=== PATIENT | female | born 1975 | race Caucasian/White ===

== ENCOUNTER 2017-10-03 08:07 | Inpatient (IN) ==
[2017-10-03] MEDS ORDERED: Albuterol 2.5 MG/3 ML NEBULIZER IH ONE (08:20)
[2017-10-03] MEDS ORDERED: CeFAZolin Syr 2,000MG/20 ML 2,000 MG/20 ML SYRINGE IVPB ONE (08:20)
[2017-10-03] MEDS ORDERED: Ringers Solution, Lactated 1,000 ML IVC SCH ×2 (08:30→15:03)
[2017-10-03] MEDS ORDERED: *HR* Succinylcholine 200 MG/10 ML VIAL IVP ONE (08:41)
[2017-10-03] MEDS ORDERED: Ondansetron 4 MG/2 ML VIAL ONE (08:41)
[2017-10-03] MEDS ORDERED: Neostigmine Methylsulfate 3 MG/3 ML SYRINGE ONE (08:41)
[2017-10-03] MEDS ORDERED: Lidocaine -MPF 2% 2 ML VIAL ONE (08:41)
[2017-10-03] MEDS ORDERED: *HR* Rocuronium Bromide 50 MG/5 ML VIAL ONE ×2 (08:41→12:04)
[2017-10-03] MEDS ORDERED: Lidocaine -MPF 4% 5 ML AMPUL ONE (08:41)
[2017-10-03] MEDS ORDERED: Dexamethasone 4 MG/ML VIAL ONE (08:41)
[2017-10-03] MEDS ORDERED: *HR* Propofol 200 MG/20 ML VIAL IVP ONE (08:42)
[2017-10-03] MEDS ORDERED: *HR* FentaNYL (PF) 100 MCG/2 ML VIAL ONE ×2 (08:42→12:54)
[2017-10-03] MEDS ORDERED: Ketorolac 30 MG/ML VIAL ONE (08:42)
[2017-10-03] MEDS ORDERED: *HR* Midazolam HCl 2 MG/2 ML VIAL ONE (08:42)
--- NOTE | 2017-10-03 09:55 | History & Physical Report ---
Date of Encounter: 10/03/17 Time of Encounter: 09:54 24 Hour HP Update - Instructions Instructions: If the History and Physical is less than 30 days old and was completed prior to A.M. admission and or procedure and has NOT been updated on calendar day of procedure please complete this update prior to performing procedure. - Update Patient reports changes in Medical Condition: No Changes in examination, assessment, or condition: No Changes in Medication: No Preop tests/diagnostics Reviewed: Yes Surgery Remains Indicated: Yes Consent for Planned Operative Procedure(s) Verified: Yes - Pre-Operative Checklist Preoperative Checklist Indicated: Yes Prophylactic Antibiotic Ordered: Yes Home Medications Include Beta Marky: No Beta Marky Taken Today (Day of Surgery): No Beta Marky Taken Yesterday (Day Prior to Surgery): No Is VTE Prophylaxis Indicated?: Yes
--- NOTE | 2017-10-03 10:06 | Anesthesia Evaluation PreOp ---
Date of Encounter: 10/03/17 Time of Encounter: 10:03 - Past History Planned Operation: AGATA Cardiac History: HTN, Hyperlipidemia Pulmonary History: Smoker, Other [employer] History: Denies Any Significant HX Other Medical History: Thyroid, Other (Uterine fibroids, Menorrhagia, Anemia, Morbid obesity BMI 41) Anesthesia History: No Prior Anesthetic Complications, Past Anesthesia (BTL, Appy) Alcohol Use: none Drug use: none Medications and Allergies Atorvastatin [Lipitor] 40 mg PO DAILY 10/03/17 [History] Levothyroxine Sodium 50 mcg PO DAILY 10/03/17 [History] Lisinopril/Hydrochlorothiazide [Zestoretic 20-25 mg Tablet] 1 tab PO DAILY 10/03 [History] 3 Allergy/AdvReac Type Severity Reaction Status Date / Time No Known Allergies Allergy Verified 10/03/17 08:30 - Meds/Allergy Pre-op Review Medications Reviewed: Yes Allergies Reviewed: Yes Anesthesia Results - Labs Laboratory Tests 09/26/17 09/26/17 15:29 15:29 Hgb 10.6 L Hct 33.5 L Plt Count 318 Sodium 136 Potassium 4.3 BUN 11 Creatinine 0.81 Est GFR (Non-Af Amer) > 60 Anesthesia Exam O2 Sat Height 1.68 m Height 1.68 m Height 1.68 m Weight 113.852 kg Weight 113.852 kg Weight 113.852 kg O2 Sat by Pulse Oximetry 98 O2 Sat by Pulse Oximetry 98 Vital Signs Temp Pulse Resp BP Pulse Ox 98.0 F 68 18 115/71 98 10/03/17 08:20 10/03/17 08:20 10/03/17 08:20 10/03/17 08:20 10/03/17 08:20 - HEENT Pupil (Motor): Pupils equal Mallampati: I Teeth: Edentulous Denture Type: Upper: Complete Oral Opening: Greater than 3 - [employer] LOC: Oriented - Cardiac Rhythm: Regular - Pulmonary Breath Sounds: bilateral Clear Anesthesia Assess/Plan ASA Score: 3 Modified Grafton Scale for Level of Consciousness: Cooperative, oriented, and tranquil Anesthetic Plan: General, Regional (Possible Daniel TAP block) Autologous Blood: Yes (If needed, T&S ordered) Monitoring Plan: Standard Monitors Recovery Plan: PACU
[2017-10-03] MEDS ORDERED: EPHEDrine 50 MG/ML VIAL ONE (11:03)
[2017-10-03] MEDS ORDERED: *HR* Morphine 10 MG/ML VIAL ONE (12:35)
[2017-10-03] MEDS ORDERED: *HR* HYDROmorphone (PF) 1 MG/ML SYRINGE IVP PRN (13:17)
[2017-10-03] MEDS ORDERED: *HR* Promethazine 25 MG/ML VIAL IVP PRN (13:17)
--- NOTE | 2017-10-03 13:40 | Anesthesia Evaluation Post Op ---
Date of Encounter: 10/03/17 Time of Encounter: 13:40 - Vital Signs Vital Signs: vss - Lungs Lungs: Clear Ascult./Percussion - Airway Airway: Non-obstructed - Cardiovascular Regular Rate, Baseline Rhythm - Mental Status Mental Status: Alert & Oriented, Answers Appropriately - Pain Pain Scale: 0 Pain Scale used: Numeric (1 - 10) - Nausea Vomiting Nausea Vomiting: Not Present - Hydration Hydration: Tolerates oral liquids, Ice chips, Gore catheter - Discharge PostOp Status: Transfer Patient to floor
--- NOTE | 2017-10-03 14:30 | OB/GYN Procedure Note ---
OB-HEALTH SERVICES INFORMATION SPECIALIST: Procedure - Diagnosis Date of procedure: 10/03/17 Pre-op diagnosis: pelvic pain, fibroid uterus Post-op diagnosis: same - Procedure Procedure: AGATA, BS Surgeon: Shahla Moody Was there an chiropractic assistant present: Yes Electrolysist: Kvng Bellamy Anesthesia Type: General Estimated blood loss (cc): 50 Fluids: crystalloid Procedure Complications: none Specimens collected: b/l tubes, uterus and cervix Disposition: same day Findings: fibroid uterus, normal looking ovaries and tubes Narrative: The patient was prepped and draped in the usual sterile fashion. An incision was made into the abdomen down through the subcutaneous tissue, muscular fascia and peritoneum. Once inside the abdominal cavity, a retractor(Alicia Reyes) was placed to expose the pelvic cavity with 3 lap sponges. The uterus was then identified and grasped on the fundus with a double-toothed tenaculum with upward traction. The round ligaments on either side were identified and individually dissected and ligated with the Ligasure device. This allowed us to then create a bladder flap by both blunt and sharp dissection. The fallopian tube and ovarian ligament were isolated through the broad ligament from the uterine body and ligated with the Ligasure divided as well. We then skeletonized the uterine vessels on either side and carefully dissected the bladder flap anteriorly. Posteriorly, the peritoneum was dissected down toward the uterosacral ligaments. Priscila clamps were then placed at each isthmic portion of the cervical body junction where the uterine arteries adjoined the uterus. These were clamped, ligated and divided using #0 Vicryl suture. The remainder of the uterus was then removed by the [id number] technique using #0 Vicryl on all major pedicles. With removal of the uterus, the vaginal cuff was closed in the usual manner. Hemostasis was then inspected and secured throughout the entire area. The ovaries were left in situ. The lap sponges were then removed and the self-retaining retractor was removed. The patient tolerated the operation nicely. The sponge count was correct times 2 at this time. The Gore catheter was inspected and clear urine was noted. Having removed all instruments and packs, we then began closure of the abdomen. The fascia was closed with #0 PDS in a running continuous manner and the subcutaneous tissue was also closed with #3-0 Vicryl after irrigation. The skin was closed with #4-0 vicryl. The patient tolerated the operation nicely and was then taken to the Recovery Room in good condition.
[2017-10-03] MEDS ORDERED: Naloxone 0.4 MG/ML INJ IVP PRN (15:03)
[2017-10-03] MEDS ORDERED: Ondansetron 4 MG/2 ML VIAL IVP PRN (15:03)
[2017-10-03] MEDS: *HR* OxyCODONE/APAP 5/325 TABLET PO PRN ×2 (15:29→22:26)
[2017-10-04 04:36] LABS: Basophils % 0.1 %; Eosinophils % 0.1 %; Hematocrit 35.4 % (35.3-44.9); Hemoglobin 11.6 g/dL (11.5-15.4); Immature Granulocytes % 0.4 % (0-4); Lymphocytes # 2.1 K/mcL (0.6-4.6); Lymphocytes % 12.4 %; Mean Corpuscular HGB Conc 32.8 g/dL (31.6-35.5); Mean Corpuscular Hemoglobin 28.6 pg (28.0-33.3); Mean Corpuscular Volume 87.2 fL (83.0-100.0); Mean Platelet Volume 10.3 fL (9.4-12.4); Monocytes # 1.2 K/mcL (0.0-1.3); Monocytes % 6.8 %; Neutrophils # 13.6 K/mcL (1.6-8.9); Platelet Count 349 K/mcL (140-400); Red Blood Count 4.06 M/mcL (3.82-4.97); Red Cell Distribution Width 14.2 % (11.5-14.5); Segmented Neutrophils % 80.2 %
[2017-10-04] MEDS: *HR* OxyCODONE/APAP 5/325 TABLET PO PRN (05:25)
[2017-10-04 08:16] VITALS: BP 99/64
--- NOTE | 2017-10-04 08:22 | Discharge Summary ---
Date of Encounter: 10/04/17 Time of Encounter: 08:22 - Discharge Diagnosis (1) Status post hysterectomy Priority: Primary Status: Acute Comments: status post AGATA, POD#1, patient is doing well, ambulating, tolerating PO, good urine output, wants to go home, ok for discharge - Discharge Medications Home Medications: Atorvastatin [Lipitor] 40 mg PO DAILY 10/03/17 [History] Levothyroxine Sodium 50 mcg PO DAILY 10/03/17 [History] Lisinopril/Hydrochlorothiazide [Zestoretic 20-25 mg Tablet] 1 tab PO DAILY 10/03 [History] Allergies/Adverse Reactions: 3 Allergy/AdvReac Type Severity Reaction Status Date / Time No Known Allergies Allergy Verified 10/03/17 08:30 Data Procedures and tests throughout hospitalization: Laboratory Tests 10/03/17 10/04/17 10:05 04:13 WBC 17.0 H RBC 4.06 Hgb 11.6 Hct 35.4 MCV 87.2 MCH 28.6 MCHC 32.8 RDW 14.2 Plt Count 349 MPV 10.3 Immature Gran % 0.4 Seg Neutrophils % 80.2 Lymphocytes % 12.4 Monocytes % 6.8 Eosinophils % 0.1 Basophils % 0.1 Neutrophils # 13.6 H Lymphocytes # 2.1 Monocytes # 1.2 Eosinophils # 0.0 Basophils # 0.0 Blood Type A POSITIVE Antibody Screen NEGATIVE Labs on day of discharge: Labs from last 24 hours 10/04/17 10/03/17 04:13 10:05 WBC 17.0 H RBC 4.06 Hgb 11.6 Hct 35.4 MCV 87.2 MCH 28.6 MCHC 32.8 RDW 14.2 Plt Count 349 MPV 10.3 Immature Gran % 0.4 Seg Neutrophils % 80.2 Lymphocytes % 12.4 Monocytes % 6.8 Eosinophils % 0.1 Basophils % 0.1 Neutrophils # 13.6 H Lymphocytes # 2.1 Monocytes # 1.2 Eosinophils # 0.0 Basophils # 0.0 Blood Type A POSITIVE Antibody Screen NEGATIVE Date of admission: 10/03/17 14:01 Primary care physician: Rach Farley CNP - Patient Status Disposition: Home, Self-Care Condition: Good Functional capacity at discharge: independent ambulation Overall status at discharge: patient is progressing back to baseline - Discharge Instructions Follow Up With: Rach Farley, [employer] [Primary Care Provider] - Hospital Course [employer]ER Time Attestation: Total time spent providing and/or coordinating discharge services: Exam - Constitutional Vitals: Temp Pulse Resp BP Pulse Ox 98.3 F 62 12 99/64 96 10/04/17 07:30 10/04/17 07:30 10/04/17 07:30 10/04/17 07:30 10/04/17 07:30 General appearance IM: A&O X 3 - Respiratory Respiratory exam: Present: CTAB - Cardiovascular Cardiovascular exam IM: Present: RRR - GI/Abdominal GI/Abdominal exam IM: normal bowel sounds Incision: normal - External exam: normal external exam - VTE Documentation of Mechanical Device: Intermittent pneumatic compression device
== END 2017-10-04 11:15 | disposition home or self-care (01) | DRG 519 ==
LOC: SAMDAY 08:07 → 1NENUOBS 14:01
PROVIDERS: ADMIT Student in an Organized Health Care Education/Training Program; ATTEND Student in an Organized Health Care Education/Training Program